=== PATIENT | female | born 1935 | race Caucasian/White ===

== ENCOUNTER 2019-01-31 17:15 | Emergency (ER) | payer MEDICARE ==
[2019-01-31] MEDS ORDERED: hydrOXYzine 25 MG TAB ONE (18:18)
[2019-01-31 18:30] LABS: #Eosinphils 0.2 thou/uL (0.0-0.7); #Lymphocytes 3.1 thou/uL (1.20-3.40); #Monocytes 0.4 thou/uL (0.11-0.59); #Neutrophils 5.4 thou/uL (1.40-6.50); %Basophils 0.5 % (0.0-1.0); %Eosinophils 2.3 % (0.0-10.0); %Lymphocytes 33.9 % (21.0-51.0); %Monocytes 4.3 % (0.0-10.0); Mean Corpuscular HGB CONC 32.6 g/dL (32.0-36.0); Mean Corpuscular Hemoglobin 29.2 pg (27.0-31.0); Mean Corpuscular Volume 89.7 fL (78.0-98.0); Mean Platelet Volume 9.1 fL (7.4-10.4); Platelet Count 201 thou/uL (130-400); RBC Distribution Width 12.1 % (11.5-14.5); White Blood Cell (WBC) Count 9.2 thou/uL (4.8-10.8)
[2019-01-31 19:00] LABS: ALT (SGPT) 11 U/L (8-55); AST (SGOT) 29 U/L (5-34); Albumin 3.7 g/dL (3.4-4.8); Alkaline Phosphatase 101 U/L (40-150); Anion Gap 16 mmol/L (10-20); BUN (Urea Nitrogen) 13 mg/dL (9.8-20.1); Bilirubin, Total 0.4 mg/dL (0.2-1.2); Calc. Creatinine Clearance 0 mL/min (70-130); Calcium 9.2 mg/dL (7.8-10.44); Carbon Dioxide 20 mmol/L (23-31); Chloride 108 mmol/L (98-107); Estimated GFR-MDRD 65; Globulin 3.4 g/dL (2.4-3.5); Glucose 192 mg/dL (83-110); Potassium 4.5 mmol/L (3.5-5.1); Protein, Total 7.1 g/dL (6.0-8.3); Sodium 139 mmol/L (136-145)
== END 2019-01-31 19:29 | disposition home or self-care (01) ==
LOC: ERS 17:15
DX: L30.4 Erythema intertrigo (principal); L30.9 Dermatitis, unspecified; E11.9 Type 2 diabetes mellitus without complications; I10 Essential (primary) hypertension; Z79.899 Other long term (current) drug therapy; Z79.82 Long term (current) use of aspirin
CPT/HCPCS: 36415; 80053; 85025; 99283

== ENCOUNTER 2019-06-01 12:31 | Outpatient (CLI) | payer MEDICARE ==
--- NOTE | 2019-06-01 13:14 | RAD ---
XR Chest Pa Lat STANDARD HISTORY: Cough COMPARISON: 10/21/2016 FINDINGS: The heart size is normal. The lungs are well expanded without focal areas of consolidation, pneumothorax or pleural effusions. Degenerative changes in the thoracic spine again noted. IMPRESSION: No radiographic evidence of acute cardiopulmonary process.
== END 2019-06-01 12:32 | disposition home or self-care (01) ==
LOC: BICRAD 12:31
PROVIDERS: ATTEND Physician Assistant
DX: R05 Cough (principal)
CPT/HCPCS: 71046

== ENCOUNTER 2020-10-11 13:52 | Outpatient (CLI) | payer MEDICARE | END 2020-10-11 13:53 | disposition home or self-care (01) | LOC: BICMAMMO 13:52 | PROVIDERS: ATTEND Internal Medicine | DX: Z13.820 Encounter for screening for osteoporosis (principal); Z78.0 Asymptomatic menopausal state; M85.852 Other specified disorders of bone density and structure, left thigh | CPT/HCPCS: 77080 ==

== ENCOUNTER 2020-10-20 13:47 | Outpatient (CLI) | payer MEDICARE | END 2020-10-20 13:48 | disposition home or self-care (01) | LOC: BICRAD 13:47 | PROVIDERS: ATTEND Internal Medicine | DX: M25.511 Pain in right shoulder (principal); M25.512 Pain in left shoulder; M54.5 Low back pain; M47.816 Spondylosis without myelopathy or radiculopathy, lumbar region; M19.011 Primary osteoarthritis, right shoulder; M19.012 Primary osteoarthritis, left shoulder | CPT/HCPCS: 72100 ==

== ENCOUNTER 2020-11-09 11:26 | Emergency (ER) | payer MEDICARE ==
[2020-11-09] MEDS ORDERED: Acetaminophen 500 MG TAB ONE (12:52)
== END 2020-11-09 13:10 | disposition home or self-care (01) ==
LOC: ERS 11:26
DX: M19.011 Primary osteoarthritis, right shoulder (principal); M54.6 Pain in thoracic spine; I25.10 Atherosclerotic heart disease of native coronary artery without angina pectoris; E78.5 Hyperlipidemia, unspecified; I10 Essential (primary) hypertension; E11.9 Type 2 diabetes mellitus without complications; Z79.899 Other long term (current) drug therapy
CPT/HCPCS: 71046

== ENCOUNTER 2021-02-26 10:47 | Emergency (ER) | payer MEDICARE ==
[2021-02-26] MEDS ORDERED: Ondansetron PF 4 MG/2 ML Vial ONE (11:23)
[2021-02-26 11:52] LABS: #Eosinphils 0.1 thou/uL (0.0-0.7); #Lymphocytes 1.8 thou/uL (1.20-3.40); #Monocytes 0.2 thou/uL (0.11-0.59); #Neutrophils 2.2 thou/uL (1.40-6.50); %Basophils 0.9 % (0.0-1.0); %Eosinophils 1.6 % (0.0-10.0); %Monocytes 5.4 % (0.0-10.0); %Neutrophils 50.1 % (42.0-75.0); Hemoglobin 12.6 g/dL (12.0-16.0); Mean Corpuscular HGB CONC 33.8 g/dL (32.0-36.0); Mean Corpuscular Volume 88.9 fL (78.0-98.0); Mean Platelet Volume 8.8 fL (7.4-10.4); Platelet Count 146 thou/uL (130-400); RBC Distribution Width 11.9 % (11.5-14.5); Red Blood Cell (RBC) Count 4.19 mill/uL (4.20-5.40); White Blood Cell (WBC) Count 4.4 thou/uL (4.8-10.8)
[2021-02-26 12:03] LABS: ALT (SGPT) 14 U/L (8-55); AST (SGOT) 30 U/L (5-34); Albumin 3.9 g/dL (3.4-4.8); Alkaline Phosphatase 101 U/L (40-110); Anion Gap 14 mmol/L (10-20); BUN (Urea Nitrogen) 11 mg/dL (9.8-20.1); Bilirubin, Total 0.5 mg/dL (0.2-1.2); Calc. Creatinine Clearance 0 mL/min (70-130); Calcium 9.2 mg/dL (7.8-10.44); Carbon Dioxide 23 mmol/L (23-31); Chloride 106 mmol/L (98-107); Globulin 2.9 g/dL (2.4-3.5); Glucose 114 mg/dL (83-110); Lipase 35 U/L (8-78); Potassium 4.1 mmol/L (3.5-5.1); Protein, Total 6.8 g/dL (5.8-8.1); Sodium 139 mmol/L (136-145)
== END 2021-02-26 14:50 | disposition home or self-care (01) ==
LOC: ERS 10:47
DX: K58.9 Irritable bowel syndrome, unspecified (principal); I25.10 Atherosclerotic heart disease of native coronary artery without angina pectoris; E11.9 Type 2 diabetes mellitus without complications; E78.5 Hyperlipidemia, unspecified; I10 Essential (primary) hypertension; Z79.899 Other long term (current) drug therapy
CPT/HCPCS: 80053; 82274; 83630; 83690; 85025; 87045; 87046; 87324; 87328; 87329; 87427; 87449; 96374; J2405

== ENCOUNTER 2021-07-16 12:31 | Emergency (ER) | payer MEDICARE ==
[~2021-07-16 12:31] MED LIST: Iopamidol 370 76% 100 ML VIAL ONE
[2021-07-16 13:03] LABS: #Eosinphils 0.4 thou/uL (0.0-0.7); #Lymphocytes 2.6 thou/uL (1.20-3.40); #Monocytes 0.5 thou/uL (0.11-0.59); #Neutrophils 5.1 thou/uL (1.40-6.50); %Basophils 0.4 % (0.0-1.0); %Eosinophils 4.8 % (0.0-10.0); %Monocytes 5.3 % (0.0-10.0); %Neutrophils 59.6 % (42.0-75.0); Hemoglobin 11.6 g/dL (12.0-16.0); Mean Corpuscular HGB CONC 32.6 g/dL (32.0-36.0); Mean Corpuscular Hemoglobin 29.1 pg (27.0-31.0); Mean Corpuscular Volume 89.3 fL (78.0-98.0); Mean Platelet Volume 8.3 fL (7.4-10.4); Platelet Count 225 thou/uL (130-400); RBC Distribution Width 11.7 % (11.5-14.5); Red Blood Cell (RBC) Count 3.97 mill/uL (4.20-5.40); White Blood Cell (WBC) Count 8.5 thou/uL (4.8-10.8)
[2021-07-16 13:23] LABS: ALT (SGPT) 10 U/L (8-55); AST (SGOT) 15 U/L (5-34); Albumin 3.7 g/dL (3.4-4.8); Alkaline Phosphatase 119 U/L (40-110); Anion Gap 13 mmol/L (10-20); BUN (Urea Nitrogen) 19 mg/dL (9.8-20.1); Bilirubin, Total 0.5 mg/dL (0.2-1.2); Calc. Creatinine Clearance 0 mL/min (70-130); Calcium 8.9 mg/dL (7.8-10.44); Carbon Dioxide 25 mmol/L (23-31); Chloride 108 mmol/L (98-107); Globulin 2.4 g/dL (2.4-3.5); Glucose 171 mg/dL (83-110); Lipase 51 U/L (8-78); Potassium 4.1 mmol/L (3.5-5.1); Protein, Total 6.1 g/dL (5.8-8.1); Sodium 142 mmol/L (136-145)
[2021-07-16 14:51] LABS: Bacteria/HPF 4+ HPF (None Seen); Bilirubin Negative (Negative); Blood, Urine Negative (Negative); Clarity Turbid (Clear); Glucose, Urine (Dipstick) Normal (Negative); Ketone, Urine Negative (Negative); Leukocyte 500 Leu/uL (Negative); Nitrite 1+ (Negative); Protein, Urine (Dipstick) 30 mg/dL (Neg-Trace); RBC/HPF 0-3 HPF (0-3); Specific Gravity, Urine 1.018 (1.002-1.036); Squamous Epithelial None Seen HPF (0-3); Urobilinogen Normal mg/dL (Less than 2); WBC/HPF Greater than 50 HPF (0-3); pH, Urine 6.5 (5.0-9.0)
[2021-07-16] MEDS ORDERED: cefTRIAXone\\ROCEPHIN 1 GM VIAL ONE (15:39)
[2021-07-16] MEDS ORDERED: Nitrofurantoin Macrocrystal 50 MG CAP PO SCH (15:45)
== END 2021-07-16 16:44 | disposition home or self-care (01) ==
LOC: ERS 12:31
DX: N39.0 Urinary tract infection, site not specified (principal); I25.10 Atherosclerotic heart disease of native coronary artery without angina pectoris; E11.9 Type 2 diabetes mellitus without complications; E78.5 Hyperlipidemia, unspecified; I10 Essential (primary) hypertension
CPT/HCPCS: 36415; 74177; 80053; 81003; 81015; 83690; 85025; 96374; J0696; Q9967

== ENCOUNTER 2022-03-26 16:25 | Inpatient (IN) | payer MEDICARE ==
[~2022-03-26 16:25] MED LIST changes: -Iopamidol 370 76% 100 ML VIAL ONE; +Iopamidol 370 76% 50 ML VIAL FS ONE
[2022-03-26] MEDS ORDERED: Ondansetron PF 4 MG/2 ML Vial ONE (18:02)
[2022-03-26] MEDS ORDERED: Acetaminophen 500 MG TAB ONE (18:03)
[2022-03-26] MEDS ORDERED: Azithromycin 500 MG VIAL ONE (18:03)
[2022-03-26] MEDS ORDERED: cefTRIAXone\\ROCEPHIN 2 GM VIAL ONE (18:03)
[2022-03-26 18:09] LABS: #Lymphocytes 1.6 thou/uL (1.20-3.40); #Monocytes 0.8 thou/uL (0.11-0.59); #Neutrophils 9.4 thou/uL (1.40-6.50); %Basophils 0.2 % (0.0-1.0); %Eosinophils 0.1 % (0.0-10.0); %Lymphocytes 13.8 % (21.0-51.0); %Monocytes 6.8 % (0.0-10.0); %Neutrophils 79.1 % (42.0-75.0); Hemoglobin 12.6 g/dL (12.0-16.0); Mean Corpuscular HGB CONC 31.7 g/dL (32.0-36.0); Mean Corpuscular Hemoglobin 29.8 pg (27.0-31.0); Mean Corpuscular Volume 94.1 fL (78.0-98.0); Mean Platelet Volume 9.6 fL (7.4-10.4); Platelet Count 151 thou/uL (130-400); RBC Distribution Width 12.1 % (11.5-14.5); Red Blood Cell (RBC) Count 4.22 mill/uL (4.20-5.40); White Blood Cell (WBC) Count 11.9 thou/uL (4.8-10.8)
[2022-03-26] MEDS ORDERED: Aspirin Chewable 81 MG TAB ONE (18:58)
[2022-03-26] MEDS ORDERED: Acetaminophen 325 MG TAB PO PRN (19:05)
[2022-03-26] MEDS ORDERED: Calcium Carbonate 500 MG ChewTAB PO PRN (19:05)
[2022-03-26] MEDS ORDERED: Senokot S 8.6-50 MG TAB PO PRN (19:05)
[2022-03-26] MEDS ORDERED: Ondansetron PF 4 MG/2 ML Vial IVP PRN (19:05)
[2022-03-26] MEDS ORDERED: Ondansetron ODT 4 MG TAB PO PRN (19:05)
[2022-03-26] MEDS ORDERED: Benzonatate 100 MG CAP PO PRN (19:08)
[2022-03-26 19:14] LABS: ALT (SGPT) 14 U/L (8-55); AST (SGOT) 20 U/L (5-34); Albumin 3.7 g/dL (3.4-4.8); Alkaline Phosphatase 71 U/L (40-110); Anion Gap 13 mmol/L (10-20); BUN (Urea Nitrogen) 12 mg/dL (9.8-20.1); Bilirubin, Total 0.7 mg/dL (0.2-1.2); Calc. Creatinine Clearance 0 mL/min (70-130); Calcium 8.5 mg/dL (7.8-10.44); Carbon Dioxide 25 mmol/L (23-31); Chloride 103 mmol/L (98-107); Estimated GFR 72; Globulin 2.4 g/dL (2.4-3.5); Glucose 109 mg/dL (83-110); Potassium 4.2 mmol/L (3.5-5.1); Protein, Total 6.1 g/dL (5.8-8.1); Sodium 137 mmol/L (136-145)
[2022-03-26] MEDS ORDERED: hydrALAZINE 20 MG/ML VIAL SLOW IVP PRN (19:20)
[2022-03-26] MEDS ORDERED: Dextrose 5% in Water 1,000 ML IV PRN (19:21)
[2022-03-26] MEDS ORDERED: HumaLOG 300 UNITS/3 ML VIAL SC PRN (19:21)
[2022-03-26] MEDS ORDERED: Dextrose 50% Abboject 50 ML SYRINGE SLOW IVP PRN (19:21)
[2022-03-26 20:02] LABS: SARS-CoV-2 NAA Rapid Test DETECTED (NotDetected)
[2022-03-26] MEDS ORDERED: Dexamethasone 10 MG/ML VIAL ONE (20:40)
[2022-03-27] MEDS ORDERED: Dexamethasone 10 MG in Sodium Chloride 0.9% 50 ML IVPB SCH (03:00)
[2022-03-27] MEDS ORDERED: Dexamethasone 4 mg/ml Vial ONE ×2 (03:09→10:14)
[2022-03-27] MEDS ORDERED: REMDESIVIR 200 MG in Sodium Chloride 0.9% 250 ML 210 ML IV SCH (04:00)
[2022-03-27 04:14] LABS: Bacteria/HPF None Seen HPF (None Seen); Bilirubin Negative (Negative); Blood, Urine Negative (Negative); Clarity Clear (Clear); Glucose, Urine (Dipstick) Normal (Negative); Ketone, Urine Negative (Negative); Leukocyte 25 Leu/uL (Negative); Nitrite Negative (Negative); Protein, Urine (Dipstick) Negative (Neg-Trace); RBC/HPF 0-3 HPF (0-3); Specific Gravity, Urine 1.023 (1.002-1.036); Squamous Epithelial 0-3 HPF (0-3); Urobilinogen Normal mg/dL (Less than 2); WBC/HPF 0-3 HPF (0-3); pH, Urine 6.5 (5.0-9.0)
[2022-03-27 07:44] LABS: ALT (SGPT) 24 U/L (8-55); AST (SGOT) 27 U/L (5-34); Albumin 3.7 g/dL (3.4-4.8); Alkaline Phosphatase 78 U/L (40-110); Anion Gap 15 mmol/L (10-20); BUN (Urea Nitrogen) 12 mg/dL (9.8-20.1); Bilirubin, Total 0.4 mg/dL (0.2-1.2); Calc. Creatinine Clearance 60 mL/min (70-130); Calcium 8.8 mg/dL (7.8-10.44); Carbon Dioxide 24 mmol/L (23-31); Chloride 105 mmol/L (98-107); Estimated GFR 69; Globulin 2.7 g/dL (2.4-3.5); Glucose 223 mg/dL (83-110); Potassium 4.5 mmol/L (3.5-5.1); Protein, Total 6.4 g/dL (5.8-8.1); Sodium 139 mmol/L (136-145)
[2022-03-27 07:50] LABS: Hemoglobin 12.7 g/dL (12.0-16.0); MDiff Complete? YES; Mean Corpuscular HGB CONC 31.2 g/dL (32.0-36.0); Mean Corpuscular Volume 96.2 fL (78.0-98.0); Mean Platelet Volume 10.1 fL (7.4-10.4); Platelet Count 156 thou/uL (130-400); Red Blood Cell (RBC) Count 4.22 mill/uL (4.20-5.40); White Blood Cell (WBC) Count 14.5 thou/uL (4.8-10.8)
[2022-03-27 07:51] LABS: Band 20 % (5-11); Lymphocytes 6 % (21-51); Neutrophil 74 % (42-75); RBC Morphology Normal
[2022-03-27] MEDS ORDERED: cefTRIAXone\\ROCEPHIN 1 GM in Sodium Chloride 0.9% 100 ML IVPB SCH (09:00)
[2022-03-27] MEDS ORDERED: Azithromycin 500 MG in Sodium Chloride 0.9% 250 ML 250 ML IVPB SCH (09:00)
[2022-03-27] MEDS ORDERED: Dexamethasone 6 MG in Sodium Chloride 0.9% 50 ML IVPB SCH (09:00)
[2022-03-27] MEDS ORDERED: Enoxaparin Sodium 40 MG/0.4 ML SYRINGE ONE (10:14)
[2022-03-27] MEDS ORDERED: Aspirin Chewable 81 MG TAB ONE (10:14)
[2022-03-27] MEDS: Aspirin 81 mg Enteric Coated Tablet PO SCH (11:10)
[2022-03-27] MEDS: Dexamethasone 4 mg/ml Vial SLOW IVP SCH (11:11)
[2022-03-27] MEDS: Enoxaparin Sodium 40 MG/0.4 ML SYRINGE SC SCH (11:11)
[2022-03-27] MEDS ORDERED: Ascorbic Acid 500 mg Chewable Tablet ONE (12:07)
[2022-03-27] MEDS: guaiFENesin ER 600 MG TAB PO SCH ×2 (13:33→22:58)
[2022-03-27 15:03] VITALS: BMI 30.8
[2022-03-27] MEDS ORDERED: FLU VACC QS2022-23(65YR UP)/PF 240 MCG/0.7 ML SYRINGE IM ONE (16:00)
[2022-03-27] MEDS ORDERED: Lisinopril 20 MG TAB PO SCH (22:15)
[2022-03-27] MEDS: Atorvastatin Calcium 20 MG TAB PO SCH (22:58)
[2022-03-27] MEDS: Cholecalciferol 1,000 UNITS (25 MCG) TAB PO SCH (22:58)
[2022-03-28] MEDS: Albuterol 200 PUFF (6.7GM INHALER) INH SCH ×4 (03:34→18:06)
[2022-03-28 05:18] LABS: ALT (SGPT) 21 U/L (8-55); AST (SGOT) 23 U/L (5-34); Albumin 3.4 g/dL (3.4-4.8); Alkaline Phosphatase 73 U/L (40-110); Anion Gap 13 mmol/L (10-20); BUN (Urea Nitrogen) 21 mg/dL (9.8-20.1); Bilirubin, Total 0.3 mg/dL (0.2-1.2); Calc. Creatinine Clearance 66 mL/min (70-130); Calcium 8.9 mg/dL (7.8-10.44); Carbon Dioxide 23 mmol/L (23-31); Chloride 103 mmol/L (98-107); Estimated GFR 78; Globulin 2.3 g/dL (2.4-3.5); Glucose 171 mg/dL (83-110); Potassium 4.6 mmol/L (3.5-5.1); Protein, Total 5.7 g/dL (5.8-8.1); Sodium 134 mmol/L (136-145)
[2022-03-28 06:16] LABS: #Lymphocytes 1.9 thou/uL (1.20-3.40); #Monocytes 0.6 thou/uL (0.11-0.59); #Neutrophils 15.8 thou/uL (1.40-6.50); %Basophils 0.1 % (0.0-1.0); %Eosinophils 0.1 % (0.0-10.0); %Lymphocytes 10.5 % (21.0-51.0); %Monocytes 3.4 % (0.0-10.0); %Neutrophils 85.9 % (42.0-75.0); Hemoglobin 11.7 g/dL (12.0-16.0); Mean Corpuscular Hemoglobin 29.6 pg (27.0-31.0); Mean Corpuscular Volume 95.4 fL (78.0-98.0); Platelet Count 172 thou/uL (130-400); RBC Distribution Width 11.9 % (11.5-14.5); RBC Morphology Normal; Red Blood Cell (RBC) Count 3.94 mill/uL (4.20-5.40); White Blood Cell (WBC) Count 18.4 thou/uL (4.8-10.8)
[2022-03-28] MEDS ORDERED: Lisinopril 20 MG TAB PO SCH (09:00)
[2022-03-28] MEDS ORDERED: REMDESIVIR 100 MG in Sodium Chloride 0.9% 250 ML 230 ML IV SCH (09:00)
[2022-03-28] MEDS: Glimepiride 1 MG TAB PO SCH (09:32)
[2022-03-28] MEDS: Zinc Sulfate 220 MG CAP PO SCH (09:33)
[2022-03-28] MEDS: Lisinopril 20 MG TAB PO SCH ×2 (09:33→20:44)
[2022-03-28] MEDS: Ascorbic Acid 500 mg Chewable Tablet PO SCH (09:33)
[2022-03-28] MEDS: guaiFENesin ER 600 MG TAB PO SCH ×2 (09:33→20:42)
[2022-03-28] MEDS: Aspirin 81 mg Enteric Coated Tablet PO SCH (09:33)
[2022-03-28] MEDS: Clopidogrel Bisulfate 75 MG TAB PO SCH (09:34)
[2022-03-28] MEDS: Dexamethasone 4 mg/ml Vial SLOW IVP SCH (09:35)
[2022-03-28] MEDS: Enoxaparin Sodium 40 MG/0.4 ML SYRINGE SC SCH (09:37)
[2022-03-28] MEDS ORDERED: Gabapentin 300 MG CAP PO SCH (11:45)
[2022-03-28] MEDS ORDERED: Triamcinolone 0.1% Cream 15 GM TUBE TOP PRN (13:51)
[2022-03-28] MEDS: Gabapentin 300 MG CAP PO SCH ×2 (15:02→20:43)
[2022-03-28] MEDS: Hydroxychloroquine Sulfate 200 MG TAB PO SCH (20:42)
[2022-03-28] MEDS: Atorvastatin Calcium 20 MG TAB PO SCH (20:43)
[2022-03-28] MEDS: predniSONE 5 MG TAB PO SCH (20:44)
[2022-03-28] MEDS: Cholecalciferol 1,000 UNITS (25 MCG) TAB PO SCH (20:44)
[2022-03-29] MEDS: Albuterol 200 PUFF (6.7GM INHALER) INH SCH ×3 (00:48→15:48)
[2022-03-29 05:58] LABS: Band 4 % (5-11); Lymphocytes 13 % (21-51); MDiff Complete? YES; Monocytes 5 % (0-10); Neutrophil 78 % (42-75)
[2022-03-29 05:59] LABS: Hemoglobin 12.6 g/dL (12.0-16.0); Mean Corpuscular HGB CONC 30.5 g/dL (32.0-36.0); Mean Corpuscular Hemoglobin 28.8 pg (27.0-31.0); Mean Corpuscular Volume 94.2 fL (78.0-98.0); Mean Platelet Volume 10.5 fL (7.4-10.4); Platelet Count 184 thou/uL (130-400); RBC Distribution Width 11.9 % (11.5-14.5); Red Blood Cell (RBC) Count 4.38 mill/uL (4.20-5.40); White Blood Cell (WBC) Count 15.7 thou/uL (4.8-10.8)
[2022-03-29 07:25] LABS: ALT (SGPT) 23 U/L (8-55); AST (SGOT) 24 U/L (5-34); Albumin 3.4 g/dL (3.4-4.8); Alkaline Phosphatase 72 U/L (40-110); Anion Gap 14 mmol/L (10-20); BUN (Urea Nitrogen) 28 mg/dL (9.8-20.1); Bilirubin, Total 0.3 mg/dL (0.2-1.2); CRP (Inflammatory) 4.16 mg/dL (= or < 0.5); Calc. Creatinine Clearance 60 mL/min (70-130); Calcium 9.3 mg/dL (7.8-10.44); Carbon Dioxide 24 mmol/L (23-31); Chloride 104 mmol/L (98-107); Estimated GFR 72; Globulin 2.7 g/dL (2.4-3.5); Glucose 136 mg/dL (83-110); Potassium 4.7 mmol/L (3.5-5.1); Protein, Total 6.1 g/dL (5.8-8.1); Sodium 137 mmol/L (136-145)
[2022-03-29] MEDS ORDERED: Folic Acid 1 MG TAB PO SCH (09:00)
[2022-03-29] MEDS: Ascorbic Acid 500 mg Chewable Tablet PO SCH (09:49)
[2022-03-29] MEDS: predniSONE 5 MG TAB PO SCH (09:50)
[2022-03-29] MEDS: Gabapentin 300 MG CAP PO SCH ×2 (09:50→16:21)
[2022-03-29] MEDS: guaiFENesin ER 600 MG TAB PO SCH (09:50)
[2022-03-29] MEDS: Lisinopril 20 MG TAB PO SCH (09:50)
[2022-03-29] MEDS: Aspirin 81 mg Enteric Coated Tablet PO SCH (09:50)
[2022-03-29] MEDS: Zinc Sulfate 220 MG CAP PO SCH (09:50)
[2022-03-29] MEDS: Clopidogrel Bisulfate 75 MG TAB PO SCH (09:50)
[2022-03-29] MEDS: Enoxaparin Sodium 40 MG/0.4 ML SYRINGE SC SCH (09:51)
[2022-03-29] MEDS: Hydroxychloroquine Sulfate 200 MG TAB PO SCH (09:52)
[2022-03-29] MEDS: Glimepiride 1 MG TAB PO SCH (10:59)
[2022-03-29 16:16] VITALS: BP 135/85; TEMP 97.9
== END 2022-03-29 15:00 | disposition home or self-care (01) | DRG 177 ==
LOC: ERS 16:25 → SUATTDRO 16:25 → ERHOLD 19:08 → 2NO 03-27 14:28
PROVIDERS: ADMIT Internal Medicine; ATTEND Internal Medicine
PROC: XW033E5 Introduction of Remdesivir Anti-infective into Peripheral Vein, Percutaneous Approach, New Technology Group 5 (ICD-10-PCS; principal; 2022-03-26)
PROC: 8E0ZXY6 Isolation (ICD-10-PCS; 2022-03-26)
DX: U07.1 COVID-19 (principal); J12.82 Pneumonia due to coronavirus disease 2019; J96.01 Acute respiratory failure with hypoxia; I25.10 Atherosclerotic heart disease of native coronary artery without angina pectoris; I10 Essential (primary) hypertension; E78.5 Hyperlipidemia, unspecified; E11.9 Type 2 diabetes mellitus without complications; Z60.2 Problems related to living alone; L70.0 Acne vulgaris; M19.90 Unspecified osteoarthritis, unspecified site; Z95.5 Presence of coronary angioplasty implant and graft; Z79.82 Long term (current) use of aspirin; Z90.49 Acquired absence of other specified parts of digestive tract; Z90.710 Acquired absence of both cervix and uterus; Z79.899 Other long term (current) drug therapy; Z79.52 Long term (current) use of systemic steroids; Z79.02 Long term (current) use of antithrombotics/antiplatelets
CPT/HCPCS: 36415; 36416; 71045; 71275; 80053; 81003; 81015; 82728; 83605; 83880; 84145; 84484; 85025; 86140; 87040; 87070; 87086; 87205; 93005; 96365; 96367; 96375; J0248; J0456; J0696; J1100; J1650; J2405; J7050; J7512; Q9967

== ENCOUNTER 2022-12-17 15:35 | Outpatient (CLI) | payer MEDICARE | END 2022-12-17 15:36 | disposition home or self-care (01) | LOC: RAD 15:35 | PROVIDERS: ATTEND Family Medicine | DX: M79.604 Pain in right leg (principal); Z91.81 History of falling ==

== ENCOUNTER 2023-04-23 10:32 | Outpatient (CLI) | payer MEDICARE | END 2023-04-23 10:33 | disposition home or self-care (01) | LOC: RAD 10:32 | PROVIDERS: ATTEND Family Medicine | DX: M25.511 Pain in right shoulder (principal); M19.011 Primary osteoarthritis, right shoulder ==

== ENCOUNTER 2024-02-16 07:58 | Emergency (ER) | payer MEDICARE ==
[2024-02-16] MEDS ORDERED: Acetaminophen 500 MG TAB ONE (09:08)
== END 2024-02-16 09:44 | disposition home or self-care (01) ==
LOC: ERS 07:58
DX: S80.262A Insect bite (nonvenomous), left knee, initial encounter (principal); L03.116 Cellulitis of left lower limb; M17.12 Unilateral primary osteoarthritis, left knee; M19.072 Primary osteoarthritis, left ankle and foot; I10 Essential (primary) hypertension; E11.9 Type 2 diabetes mellitus without complications; E78.5 Hyperlipidemia, unspecified; I25.10 Atherosclerotic heart disease of native coronary artery without angina pectoris; W57.XXXA Bitten or stung by nonvenomous insect and other nonvenomous arthropods, initial encounter; Y93.89 Activity, other specified; Z95.5 Presence of coronary angioplasty implant and graft; Z79.82 Long term (current) use of aspirin; Z79.899 Other long term (current) drug therapy
CPT/HCPCS: 99283